=== PATIENT | male | born 1990 | race African-American/Black ===

== ENCOUNTER 2018-04-07 16:41 | Emergency (ER) | payer SELFPAY ==
--- NOTE | 2018-04-07 17:36 | RAD REPORT ---
EXAM DESCRIPTION: Taisha Single View04/07/2018 5:30 pm CLINICAL HISTORY: Chest pain COMPARISON: none FINDINGS: The lungs appear clear of acute infiltrate. The heart is normal size IMPRESSION: No acute abnormalities displayed
[2018-04-07 17:53] LABS: Barbiturates NEGATIVE (NEGATIVE); Benzodiazepines NEGATIVE (NEGATIVE); Cocaine NEGATIVE (NEGATIVE); METHAMPHETAM NEGATIVE (NEGATIVE); Methadone NEGATIVE (NEGATIVE); Opiates NEGATIVE (NEGATIVE); Phencyclidine NEGATIVE (NEGATIVE); THC Cannibis NEGATIVE (NEGATIVE)
[2018-04-07 17:57] LABS: Urine Blood NEGATIVE (NEG); Urine Glucose NEGATIVE (NEG); Urine Protein NEGATIVE (NEG); Urine Specific Gravity >1.030 (1.005-1.030)
[2018-04-07 18:07] LABS: Absolute Lymphocytes (CBC) 2.6 K/uL (0.7-4.9); Absolute Monocytes 0.9 K/uL (0.1-1.3); Absolute Neutrophil 6.2 K/uL (1.8-8.0); Basophils % 0.3 % (0-1.3); Eosinophils % 1.9 % (0-4.4); Hematocrit 46.5 % (39.6-49.0); Lymphocytes % 25.7 % (15.3-44.8); MCH 27.9 pg (27.0-35.0); MCV 82.3 fL (80-100); MPV 9.2 fL (7.6-11.3); Monocytes % 9.2 % (3.3-12.3); RBC Red Blood Cell Count 5.65 M/uL (4.33-5.43)
[2018-04-07 18:21] LABS: BUN Blood Urea Nitrogen 14 mg/dL (7-18); Bicarbonate 28 mmol/L (21-32); Glucose Level 83 mg/dL (74-106); Potassium 3.9 mmol/L (3.5-5.1); Sodium Level 140 mmol/L (136-145); Troponin (Emerg Dept Use Only) < 0.02 ng/mL (0.0-0.045)
--- NOTE | 2018-04-07 19:04 | EDPHYS ---
Physician Documentation [facility] Name: Joaquin Cates Age: 27 yrs Sex: Male : 1990 Arrival Date: 04/07/2018 Time: 16:44 Bed 7 Private MD: ED Physician Rajesh Bishop HPI: 04/07 18:00 This 27 yrs old Black Male presents to ER via Ambulatory with complaints of Chest Pain. pm1 18:00 The patient or guardian reports chest pain that is located primarily in the anterior pm1 aspect of right upper chest. The pain does not radiate. Associated signs and symptoms: Pertinent negatives: abdominal pain, cough, dizziness, headache, nausea, palpitations, shortness of breath, vomiting. The chest pain is described as aching. Duration: The patient or guardian reports a single episode. Modifying factors: the symptoms are aggravated by deep breath, palpation of area. Severity of pain: in the emergency department the pain has improved. The patient has experienced similar episodes in the past, multiple times. The patient has not recently seen a physician. Patient with on and off chest pain for 4 years. Patient reports onset of today's presentation of chest pain present for 1 week. Patient is also complaining of burning with urination and would like a test for STDs. Unprotected sex about 1 week ago. Historical: - Allergies: 16:52 No Known Allergies; aj - Home Meds: 16:52 None [Active]; aj - PMHx: 16:52 None; aj - PSHx: 16:52 None; aj - Immunization history:: Adult Immunizations up to date. - Social history:: Smoking status: Patient/guardian denies using tobacco. - Ebola Screening: : Patient negative for fever greater than or equal to 101.5 degrees Fahrenheit, and additional compatible Ebola Virus Disease symptoms Patient denies exposure to infectious person Patient denies travel to an Ebola-affected area in the 21 days before illness onset No symptoms or risks identified at this time. ROS: 18:00 Constitutional: Negative for fever, chills, and weight loss, Eyes: Negative for injury, pm1 pain, redness, and discharge, ENT: Negative for injury, pain, and discharge, Neck: Negative for injury, pain, and swelling. 18:00 Respiratory: Negative for shortness of breath, cough, wheezing, and pleuritic chest pain, Abdomen/GI: Negative for abdominal pain, nausea, vomiting, diarrhea, and constipation, Back: Negative for injury and pain. 18:00 MS/Extremity: Negative for injury and deformity, Skin: Negative for injury, rash, and discoloration, Neuro: Negative for headache, weakness, numbness, tingling, and seizure. 18:00 Cardiovascular: Positive for chest pain, Negative for palpitations. 18:00 : Positive for burning with urination, Negative for penile discharge, penile pain, testicular pain Exam: 18:00 Constitutional: This is a well developed, well nourished patient who is awake, alert, pm1 and in no acute distress. Head/Face: Normocephalic, atraumatic. Eyes: Pupils equal round and reactive to light, extra-ocular motions intact. Lids and lashes normal. Conjunctiva and sclera are non-icteric and not injected. Cornea within normal limits. Periorbital areas with no swelling, redness, or edema. ENT: Nares patent. No nasal discharge, no septal abnormalities noted. Tympanic membranes are normal and external auditory canals are clear. Oropharynx with no redness, swelling, or masses, exudates, or evidence of obstruction, uvula midline. Mucous membranes moist. Neck: Trachea midline, no thyromegaly or masses palpated, and no cervical lymphadenopathy. Supple, full range of motion without nuchal rigidity, or vertebral point tenderness. No Meningismus. Chest/axilla: Normal chest wall appearance and motion. Nontender with no deformity. No lesions are appreciated. Cardiovascular: Regular rate and rhythm with a normal S1 and S2. No gallops, murmurs, or rubs. Normal PMI, no JVD. No pulse deficits. Respiratory: Lungs have equal breath sounds bilaterally, clear to auscultation and percussion. No rales, rhonchi or wheezes noted. No increased work of breathing, no retractions or nasal flaring. Abdomen/GI: Soft, non-tender, with normal bowel sounds. No distension or tympany. No guarding or rebound. No evidence of tenderness throughout. Back: No spinal tenderness. No costovertebral tenderness. Full range of motion. Skin: Warm, dry with normal turgor. Normal color with no rashes, no lesions, and no evidence of cellulitis. MS/ Extremity: Pulses equal, no cyanosis. Neurovascular intact. Full, normal range of motion. 18:00 Neuro: Orientation: is normal, Motor: is normal, moves all fours. Vital Signs: 16:52 BP 121 / 83; Pulse 71; Resp 17; Temp 97.7; Pulse Ox 99% on R/A; Weight 131.54 kg; aj Height 6 ft. 3 in. (190.50 cm); 17:38 BP 115 / 65; Pulse 65; Resp 14; Temp 98.5; Pulse Ox 99% on R/A; Pain 5/10; ch 18:43 BP 122 / 72; Pulse 68; Resp 14; Temp 98; Pulse Ox 97% on R/A; Pain 6/10; ch 19:28 BP 128 / 88; Pulse 62; Resp 16; Pulse Ox 98% on R/A; Pain 0/10; aa1 16:52 Body Mass Index 36.25 (131.54 kg, 190.50 cm) aj MDM: 16:54 Patient medically screened. pm1 19:00 Data reviewed: vital signs. Data interpreted: Pulse oximetry: on room air is 97 %. pm1 Interpretation: normal. Counseling: I had a detailed discussion with the patient and/or guardian regarding: the historical points, exam findings, and any diagnostic results supporting the discharge/admit diagnosis, lab results, radiology results, the need for outpatient follow up, to return to the emergency department if symptoms worsen or persist or if there are any questions or concerns that arise at home. 19:00 ED course: Patient appears more concerned about the possibility of STD versus his chest pm1 pain for the past 4 years. Heart score = 0, PEREZ score = 0. Patient discharged home to follow up with PCP and STD clinic for further evaluation and treatment. 04/07 17:14 Order name: Urine Dipstick--Ancillary (enter results); Complete Time: 18:10 ag 04/07 17:17 Order name: Basic Metabolic Panel; Complete Time: 18:37 pm1 04/07 17:17 Order name: CBC with Diff; Complete Time: 18:10 pm1 04/07 17:17 Order name: Troponin (emerg Dept Use Only); Complete Time: 18:37 pm1 04/07 17:17 Order name: XRAY Chest (1 view); Complete Time: 18:10 pm1 09/15 17:17 Order name: UDS; Complete Time: 18:10 pm1 04/07 17:01 Order name: EKG; Complete Time: 17:01 pm1 04/07 17:01 Order name: EKG - Nurse/Tech; Complete Time: 17:11 pm1 04/07 17:17 Order name: Cardiac monitoring; Complete Time: 18:19 pm1 04/07 17:17 Order name: IV Saline Lock; Complete Time: 18:19 pm1 04/07 17:17 Order name: Labs collected and sent; Complete Time: 18:19 pm1 04/07 17:17 Order name: O2 Per Protocol; Complete Time: 18:19 pm1 04/07 17:17 Order name: O2 Sat Monitoring; Complete Time: 18:19 pm1 04/07 17:17 Order name: Urine Dipstick-Ancillary (obtain specimen); Complete Time: 18:19 pm1 Administered Medications: 19:20 Drug: Rocephin (cefTRIAXone) 250 mg Route: IM; Site: right deltoid; aa1 19:28 Follow up: Response: No adverse reaction; Medication administered at discharge. aa1 19:20 Drug: Zithromax 1 grams Route: PO; aa1 19:28 Follow up: Response: No adverse reaction; Medication administered at discharge. aa1 Disposition: 04/07/18 19:04 Discharged to Home. Impression: Chest pain, unspecified, Urethritis. - Condition is Stable. - Discharge Instructions: Nonspecific Chest Pain, Sexually Transmitted Disease, Urethritis, Adult. - Medication Reconciliation Form, Thank You Letter form. - Follow up: Emergency Department; When: As needed; Reason: Worsening of condition. Follow up: Private Physician; When: 2 - 3 days; Reason: Recheck today's complaints, Continuance of care, Re-evaluation by your physician. - Problem is new. - Symptoms have improved. Addendum: 04/09/2018 08:01 Co-signature as Attending Physician, Rajesh Bishop MD I agree with the assessment and w a plan of care. Signatures: Dispatcher [employer] Fabiola Dickerson RN RN aa1 Hannah Dsouza RN RN aj Marinas, Patrick, AMBULANCE PARAMEDIC AMBULANCE PARAMEDIC pm1 Rajesh Bishop MD MD sc Corrections: (The following items were deleted from the chart) 04/07 19:32 19:04 04/07/2018 19:04 Discharged to Home. Impression: Chest pain, unspecified; aa1 Urethritis. Condition is Stable. Forms are Medication Reconciliation Form, Thank You Letter, Antibiotic Education, Prescription Opioid Use. Follow up: Emergency Department; When: As needed; Reason: Worsening of condition. Follow up: Private Physician; When: 2 - 3 days; Reason: Recheck today's complaints, Continuance of care, Re-evaluation by your physician. Problem is new. Symptoms have improved. pm1
--- NOTE | 2018-04-07 19:04 | ER ---
Nurse's Notes [facility] Name: Joaquin Cates Age: 27 yrs Sex: Male : 1990 Arrival Date: 04/07/2018 Time: 16:44 Bed 7 Private MD: Diagnosis: Chest pain, unspecified;Urethritis Presentation: 04/07 16:50 Presenting complaint: Patient states: Reports chest pain for 3 years to right chest. No aj reports of nausea. Patient would also like to be checked for STD's. States "I had sex with this girl and I don't trust her.". Transition of care: patient was not received from another setting of care. Onset of symptoms was 2014. Risk Assessment: Do you want to hurt yourself or someone else? Patient reports no desire to harm self or others. Initial Sepsis Screen: Does the patient meet any 2 criteria? No. Patient's initial sepsis screen is negative. Does the patient have a suspected source of infection? No. Patient's initial sepsis screen is negative. Care prior to arrival: None. 16:50 Method Of Arrival: Ambulatory 16:50 Acuity: SAAD 3 Triage Assessment: 16:52 General: Appears in no apparent distress. comfortable, Behavior is calm, cooperative, aj appropriate for age. Pain: Complains of pain in anterior aspect of right upper chest and right breast. Neuro: Level of Consciousness is awake, alert, obeys commands, Oriented to person, place, time, situation, Appropriate for age. Cardiovascular: Capillary refill < 3 seconds in bilateral fingers Patient's skin is warm and dry. Respiratory: Airway is patent Respiratory effort is even, unlabored, Respiratory pattern is regular, symmetrical. : Reports burning with urination. Derm: Skin is intact, is healthy with good turgor, Skin is pink, warm \\T\\ dry. normal. Historical: - Allergies: 16:52 No Known Allergies; aj - Home Meds: 16:52 None [Active]; aj - PMHx: 16:52 None; aj - PSHx: 16:52 None; aj - Immunization history:: Adult Immunizations up to date. - Social history:: Smoking status: Patient/guardian denies using tobacco. - Ebola Screening: : Patient negative for fever greater than or equal to 101.5 degrees Fahrenheit, and additional compatible Ebola Virus Disease symptoms Patient denies exposure to infectious person Patient denies travel to an Ebola-affected area in the 21 days before illness onset No symptoms or risks identified at this time. Screenin:38 Abuse screen: Denies threats or abuse. Denies injuries from another. Nutritional ch screening: No deficits noted. Tuberculosis screening: No symptoms or risk factors identified. Fall Risk None identified. Assessment: 17:38 General: Appears in no apparent distress. comfortable, Behavior is calm, cooperative, ch appropriate for age. Pain: Complains of pain in chest Pain does not radiate. Pain currently is 6 out of 10 on a pain scale. Pain began gradually, years ago. Neuro: Level of Consciousness is awake, alert, obeys commands, Oriented to person, place, time, situation. Cardiovascular: Heart tones S1 S2 present Capillary refill < 3 seconds in bilateral fingers toes Clubbing of nail beds is absent Patient's skin is warm and dry. Pulses are all present. Edema is absent. Respiratory: Airway is patent Respiratory effort is even, unlabored, Breath sounds are clear bilaterally. GI: Bowel sounds present X 4 quads. : No signs and/or symptoms were reported regarding the genitourinary system. Reports pt states he slep with a girl he thinks may have an STD. states no symptoms now. Derm: Skin is intact, Skin is pink, warm \\T\\ dry. 18:43 Reassessment: Patient appears in no apparent distress at this time. No changes from previously documented assessment. Patient and/or family updated on plan of care and expected duration. Pain level reassessed. Patient is alert, oriented x 3, equal unlabored respirations, skin warm/dry/pink. Patient states feeling better. Patient states symptoms have improved. 19:28 Reassessment: Patient appears in no apparent distress at this time. Patient is alert, aa1 oriented x 3, equal unlabored respirations, skin warm/dry/pink. Discussed d/c \\T\\ f/u instructions with pt; denies questions or concerns at this time Patient denies pain at this time. Vital Signs: 16:52 BP 121 / 83; Pulse 71; Resp 17; Temp 97.7; Pulse Ox 99% on R/A; Weight 131.54 kg; aj Height 6 ft. 3 in. (190.50 cm); 17:38 BP 115 / 65; Pulse 65; Resp 14; Temp 98.5; Pulse Ox 99% on R/A; Pain 5/10; ch 18:43 BP 122 / 72; Pulse 68; Resp 14; Temp 98; Pulse Ox 97% on R/A; Pain 6/10; ch 19:28 BP 128 / 88; Pulse 62; Resp 16; Pulse Ox 98% on R/A; Pain 0/10; aa1 16:52 Body Mass Index 36.25 (131.54 kg, 190.50 cm) ED Course: 16:44 Patient arrived in ED. mr 16:51 Triage completed. aj 16:52 Arm band placed on left wrist. Patient placed in an exam room. aj 16:53 Paul Sanon NP is PHCP. pm1 16:53 Rajesh Bishop MD is Attending Physician. pm1 16:58 Nancy Stroud, KOFFI is Primary Nurse. ch 17:11 EKG done, by ED staff, reviewed by Paul Sanon NP. jb1 17:11 Urine collected: clean catch specimen, clear, linda colored. jb1 17:31 XRAY Chest (1 view) In Process Unspecified. EDMS 17:38 No apparent distress. Resting quietly. ch 17:38 Patient has correct armband on for positive identification. Placed in gown. Bed in low ch position. Call light in reach. Side rails up X 1. classroom monitor on. Pulse ox on. NIBP on. 17:38 No provider procedures requiring assistance completed. Patient maintains SpO2 ch saturation greater than 95% on room air. 17:51 Inserted saline lock: 20 gauge in right antecubital area, using aseptic technique. ch Blood collected. 18:43 Warm blanket given. ch 19:28 IV discontinued, intact, bleeding controlled, No redness/swelling at site. Pressure aa1 dressing applied. Administered Medications: 19:20 Drug: Rocephin (cefTRIAXone) 250 mg Route: IM; Site: right deltoid; aa1 19:28 Follow up: Response: No adverse reaction; Medication administered at discharge. aa1 19:20 Drug: Zithromax 1 grams Route: PO; aa1 19:28 Follow up: Response: No adverse reaction; Medication administered at discharge. aa1 Outcome: 19:04 Discharge ordered by . pm1 19:30 Discharged to home ambulatory. aa1 19:30 Condition: good 19:30 Discharge instructions given to patient, Instructed on discharge instructions, follow up and referral plans. safe sex practices, Demonstrated understanding of instructions, follow-up care. 19:32 Patient left the ED. aa1 Signatures: Dispatcher [employer] EDChristiano Manzo jb1 Nancy Stroud RN RN ch Kern, Alissa, RN RN aa1 Hannah Dsouza RN RN aj Rivera, Maria mr Marinas, Patrick, ROSSY STONE RUBBER pm1
[2018-04-07] MEDS ORDERED: AZITHROMYCIN 250 MG TAB ONE (19:23)
[2018-04-07] MEDS ORDERED: CEFTRIAXONE 250 MG/VIAL ONE (19:23)
[2018-04-07] MEDS ORDERED: LIDOCAINE 1% MPF 2 ML AMPULE ONE (19:24)
--- NOTE | 2018-04-09 06:55 | EKG ---
Test Date: 2018-04-07 Test Time: 17:01:18 Ash Collector: ANUSHKA MEASUREMENT RESULTS: Intervals: Rate: 75 MS: 158 QRSD: 90 QT: 374 QTc: 417 [place]: P: 63 MS: 158 QRS: 47 T: -14 INTERPRETIVE STATEMENTS: Normal sinus rhythm T wave abnormality, consider inferior ischemia Abnormal ECG No previous ECG available for comparison Electronically Signed On 04-09-18 06:51:36 CDT by Pablo Calvert
== END 2018-04-07 19:32 | disposition home or self-care (01) ==
LOC: ER 16:41
DX: R07.9 Chest pain, unspecified (principal); N34.2 Other urethritis
CPT/HCPCS: 36415; 71045; 80048; 80307; 81003; 84484; 85025; 93005; 96372; 99285; J0696; J2001